=== PATIENT | male | born 1965 | race Caucasian/White ===

== ENCOUNTER → 2020-12-23 | Day surgery (SDC) | payer OTHER ==
[2020-12-23 08:37] LABS: HCT 48.3 % (42.0-52.0); HGB 16.8 g/dl (13.2-18.0); MCH 29.2 pg (25.0-31.0); MCHC 34.8 g/dL (32.0-36.0); MPV 10.1 fL (6.0-9.5); RBC 5.75 M/uL (4.70-6.00); RDW 12.4 % (11.5-14.0); WBC 6.9 K/uL (4.0-10.5)
[2020-12-23 09:09] LABS: ALBUMIN 4.1 g/dL (3.4-5.0); BILIRUBIN - TOTAL 1.2 mg/dL (0.2-1.0); CREATININE 1.07 mg/dL (0.67-1.17); GLOBULIN (CALCULATION) 3.2 g/dL; POTASSIUM 3.5 mmol/L (3.5-5.1); TOTAL PROTEIN 7.3 g/dL (6.4-8.2)
== END | disposition home or self-care (01) ==
LOC: FAS 08:01
PROVIDERS: Surgery
DX: Z12.11 Encounter for screening for malignant neoplasm of colon (principal); K21.9 Gastro-esophageal reflux disease without esophagitis; Z20.822 Contact with and (suspected) exposure to COVID-19; Z98.890 Other specified postprocedural states; Z77.22 Contact with and (suspected) exposure to environmental tobacco smoke (acute) (chronic)
CPT/HCPCS: 36415; 80053; J2250; J2704; J7120

== ENCOUNTER 2021-04-11 09:12 | Emergency (ER) | payer OTHER ==
[2021-04-11 10:02] LABS: BASOPHIL 0.4 % (0-2); EOSINOPHIL 0.2 % (0-5); HGB 16.6 g/dl (13.2-18.0); LYMPHOCYTE 16.9 % (15-48); MCH 28.7 pg (25.0-31.0); MCHC 33.9 g/dL (32.0-36.0); MCV 84.6 fL (78.0-100.0); MONOCYTE 6.9 % (0-12); MPV 10.5 fL (6.0-9.5); NEUTROPHIL 75.2 % (41-80); NRBC 0; PLT 165 K/uL (150-400); RBC 5.79 M/uL (4.70-6.00); RDW 12.4 % (11.5-14.0); WBC 5.7 K/uL (4.0-10.5)
[2021-04-11 10:21] LABS: ALBUMIN 3.5 g/dL (3.4-5.0); BILIRUBIN - TOTAL 0.6 mg/dL (0.2-1.0); BUN/CREAT RATIO (CALC) 14.5 RATIO; CREATININE 1.38 mg/dL (0.67-1.17); GLOBULIN (CALCULATION) 3.5 g/dL
== END 2021-04-11 12:13 | disposition home or self-care (01) ==
LOC: FER 09:12
PROVIDERS: Internal Medicine
DX: U07.1 COVID-19 (principal); N17.9 Acute kidney failure, unspecified
CPT/HCPCS: 36415; 71045; 80053; 85025; J7030